=== PATIENT | male | born 1995 | race Hispanic/Latino ===

== ENCOUNTER 2017-05-07 09:41 | Emergency (ER) | payer OTHER ==
[~2017-05-07] VITALS: Ht 170.2 cm; Wt 94.8 kg
[2017-05-07] MEDS ORDERED: ATIVAN IV STA (09:43)
[2017-05-07 09:51] VITALS: BP 156/70
--- NOTE | 2017-05-07 09:51 | PCM.EKG ---
[facility] Test Date: 2017-05-07 Test Time: 09:50:16 Pat Name: SANTOSH LEON Department: Patient ID: [facility]-[id number] Room: Gender: M [employer] Supervisor: : 1995 Requested By: CANDICE LESTER Order Number: [id number] Reading MD: Candice Lester Measurements Intervals [place] Rate: 77 P: 25 [place]: 146 QRS: 52 QRSD: 92 T: 12 QT: 376 QTc: 425 Interpretive Statements Normal sinus rhythm Normal ECG No previous ECG available for comparison Electronically Signed On 05-07-2017 10:44:38 CDT by Candice Lester Please click the below link to view image of tracing.
[2017-05-07 10:01] LABS: BASOPHIL % 0.3 % (0.0-0.2); EOSINOPHIL # 0.3 10^3/uL (0.0-0.2); EOSINOPHIL % 3.6 % (0.0-5.0); HEMOGLOBIN 15.3 g/dL (13.9-16.3); LYMPHOCYTES # 3.4 10^3/uL (1.0-4.8); LYMPHOCYTES % 44.8 % (24.0-44.0); MEAN CELL HGB 29.1 pg (26-34); MEAN CELL HGB CONCENTRATION 33.3 g/dL (33-37); MEAN CORP VOLUME 87.4 fL (78-100); MEAN PLATELET VOLUME 9.2 fL (7.8-11.0); MONOCYTES # 0.5 10^3/uL (0.3-0.8); MONOCYTES % 6.6 % (5.0-12.0); NEUTROPHIL # 3.4 10^3/uL (1.8-7.7); RED CELL DISTRIBUTION WIDTH 13.3 % (11.5-14.5); WHITE BLOOD CELL 7.6 10^3/uL (4.5-11.0)
[2017-05-07] MEDS ORDERED: ATIVAN ONE (10:01)
[2017-05-07 10:18] LABS: CALCIUM 8.7 mg/dL (8.4-10.5); CARBON DIOXIDE 23.9 mmol/L (20.0-32)
[2017-05-07 10:25] LABS: BILIRUBIN,URINE NEGATIVE (NEGATIVE); UROBILINOGEN,URINE NORMAL (NEGATIVE)
[2017-05-07 10:31] LABS: APPEARANCE,URINE CLEAR (CLEAR); UA COLOR AMBER (YELLOW)
[2017-05-07 10:35] LABS: WBC,URINE 0-2 WBC/HPF (0-2)
[2017-05-07 10:51] VITALS: BP 156/70
== END 2017-05-07 11:25 | disposition home or self-care (01) ==
LOC: ER 09:41 → EDBD 09:41 → ER 11:25
DX: R06.4 Hyperventilation (principal); R73.9 Hyperglycemia, unspecified; F41.9 Anxiety disorder, unspecified; R80.9 Proteinuria, unspecified
CPT/HCPCS: 36415; 80053; 80307; 81000; 85025; 85379; 93005; 96374; 99285; J2060